=== PATIENT | female | born 1980 | race Caucasian/White ===

== ENCOUNTER 2017-01-24 12:59 | Emergency (ER) | payer OTHER ==
[~2017-01-24] VITALS: Ht 152.4 cm; Wt 44.0 kg
[2017-01-24] MEDS ORDERED: NEURONTIN600 MG PO (13:32)
[2017-01-24] MEDS ORDERED: KEPPRA 500 MG500 M1 PO (13:33)
[2017-01-24] MEDS ORDERED: DESYREL300 MG PO (13:33)
[2017-01-24] MEDS ORDERED: VITAMIN B-12100 MCG PO (13:33)
[2017-01-24] MEDS ORDERED: ESCITALOPRAM OX20 MG PO (13:34)
[2017-01-24] MEDS ORDERED: ZONEGRAN100 MG PO (13:34)
[2017-01-24 13:42] LABS: ABSOLUTE NEUTROPHILS 3.4 thou/uL (1.4-8.2); BASOPHILS 0.5 % (0.0-2.0); HEMATOCRIT 33.3 % (37.0-47.0); LYMPHOCYTES 30.4 % (24.0-44.0); MCH 27.7 pg (26.0-34.0); MCV 83.8 fL (80.0-100.0); MONOCYTES 7.6 % (1.0-8.0); PLATELET COUNT 195 thou/uL (150-400); POLYS 60.5 % (36.0-66.0); RBC 3.97 mil/uL (4.20-5.00); RDW 15.9 % (10.5-14.5); WBC 5.6 thou/uL (4.0-11.0)
[2017-01-24 13:43] LABS: MANUAL DIFF NO
[2017-01-24 13:48] LABS: CALCIUM 8.9 mg/dL (8.5-10.1); CREATININE 1.2 mg/dL (0.6-1.0); POTASSIUM 3.3 mmol/L (3.5-5.1)
[2017-01-24 13:54] LABS: ALBUMIN 3.8 g/dL (3.4-5.0); TOTAL BILIRUBIN 0.4 mg/dL (<0.1-1.0); TOTAL PROTEIN 7.5 g/dL (6.4-8.2)
[2017-01-24] MEDS ORDERED: ONDANSETRON HCL4 M2 PO (15:59)
[2017-01-24] MEDS ORDERED: BUTALB-APAP-CA1 EACH PO (15:59)
[2017-01-24 16:14] VITALS: BP 129/76
== END 2017-01-24 16:14 | disposition home or self-care (01) ==
LOC: ER 12:59
PROVIDERS: Emergency Medicine
DX: R10.12 Left upper quadrant pain (principal); R11.2 Nausea with vomiting, unspecified; G40.909 Epilepsy, unspecified, not intractable, without status epilepticus; Z94.4 Liver transplant status; F17.210 Nicotine dependence, cigarettes, uncomplicated; F10.99 Alcohol use, unspecified with unspecified alcohol-induced disorder; F19.10 Other psychoactive substance abuse, uncomplicated

== ENCOUNTER 2017-07-16 07:52 | Emergency (ER) | payer OTHER ==
[~2017-07-16] VITALS: Ht 152.4 cm; Wt 54.4 kg
[~2017-07-16 07:52] MED LIST: BUTALB-APAP-CA1 EACH PO; CLARITIN-D 121 EAC1 PO; DESYREL300 MG PO; ESCITALOPRAM OX20 MG PO; KEPPRA 500 MG500 M1 PO; MOBIC7.5 MG PO; NASONEX17 GM NASAL; NEURONTIN600 MG PO; ONDANSETRON HCL4 M2 PO; VITAMIN B-12100 MCG PO; ZONEGRAN100 MG PO
[2017-07-16] MEDS ORDERED: BACTROBAN NASAL1 GM NASAL (08:05)
[2017-07-16] MEDS ORDERED: BUTALB-APAP-CA1 EACH PO (08:06)
[2017-07-16] MEDS ORDERED: PROAIR HFA8.5 GM INH (08:21)
== END 2017-07-16 08:51 | disposition home or self-care (01) ==
LOC: ER 07:52
DX: J06.9 Acute upper respiratory infection, unspecified (principal); J98.01 Acute bronchospasm; F17.210 Nicotine dependence, cigarettes, uncomplicated; Z88.1 Allergy status to other antibiotic agents; Z88.8 Allergy status to other drugs, medicaments and biological substances

== ENCOUNTER 2017-08-07 22:25 | Emergency (ER) | payer OTHER ==
[~2017-08-07] VITALS: Ht 152.4 cm; Wt 54.4 kg
[~2017-08-07 22:25] MED LIST changes: +BACTROBAN NASAL1 GM NASAL; +PROAIR HFA8.5 GM INH
[2017-08-07] MEDS ORDERED: OSELB75 PO (23:39)
== END 2017-08-08 00:58 | disposition home or self-care (01) ==
LOC: ER 22:25
DX: J09.X2 Influenza due to identified novel influenza A virus with other respiratory manifestations (principal); F17.210 Nicotine dependence, cigarettes, uncomplicated; Z88.1 Allergy status to other antibiotic agents

== ENCOUNTER 2017-10-07 12:55 | Emergency (ER) | payer OTHER ==
[~2017-10-07] VITALS: Ht 152.4 cm; Wt 61.2 kg
--- NOTE | ~2017-10-07 | EKG ---
[address] [employer] [place] [address] ELECTROCARDIOGRAM REPORT Name: BENJIE CANTU Room #: DEP Aroldo#: [id number] Admission: 10/07/17 Attend Phys: Discharge: 10/07/17 Date of : 78 Report #: [id number] THIS REPORT FOR: //name// [facility] ED Test Date: 2017-10-07 Test Time: 13:27:46 Pat Name: BENJIE CANTU Department: Room: Gender: F Blintze Roller: RACHELLNELLY : 1980 Requested By: Ariadne Atkins Order Number: [id number] MD: Chan Christine Measurements Intervals [place] Rate: 81 P: 17 ND: 132 QRS: 43 QRSD: 69 T: 35 QT: 392 QTc: 455 Interpretive Statements Sinus rhythm Normal tracing No previous ECG available for comparison Electronically Signed On 10-09-2017 16:27:08 CDT by Chan Christine [email or web address] <ELECTRONICALLY SIGNED> By: Chan Christine MD, [facility] 10/09/17 1627 1327 1327 Chan Christine MD, FACC /EPI
[~2017-10-07 12:55] MED LIST changes: +OSELB75 PO
[2017-10-07 13:34] LABS: BASOPHILS 0.6 % (0.0-2.0); EOSINOPHILS 0.8 % (0.0-3.0); HEMATOCRIT 37.7 % (37.0-47.0); HEMOGLOBIN 12.4 gm/dL (12.0-15.0); MCH 27.9 pg (26.0-34.0); MCV 84.4 fL (80.0-100.0); PLATELET COUNT 269 thou/uL (150-400); POLYS 59.6 % (36.0-66.0); RBC 4.47 mil/uL (4.20-5.00); RDW 16.7 % (10.5-14.5); WBC 6.7 thou/uL (4.0-11.0)
[2017-10-07 13:43] LABS: ANION GAP 10 mmol/L (7-16); BUN 27 mg/dL (7-18); CALCIUM 9.2 mg/dL (8.5-10.1); CHLORIDE 107 mmol/L (98-107); CO2 25 mmol/L (21-32); CREATININE 1.3 mg/dL (0.6-1.0); GLUCOSE 80 mg/dL (74-106); POTASSIUM 3.9 mmol/L (3.5-5.1); SODIUM 142 mmol/L (136-145)
[2017-10-07 13:52] LABS: TROPONIN-I < 0.04 ng/mL (<0.06)
[2017-10-07] MEDS ORDERED: BUTALB-APAP-CA1 EACH PO (13:58)
[2017-10-07] MEDS ORDERED: CLONIDINE0.1 PO (14:04)
[2017-10-07 14:20] VITALS: BP 167/99
== END 2017-10-07 14:15 | disposition home or self-care (01) ==
LOC: ER 12:55
PROVIDERS: Emergency Medicine
DX: G43.909 Migraine, unspecified, not intractable, without status migrainosus (principal); I10 Essential (primary) hypertension; F17.210 Nicotine dependence, cigarettes, uncomplicated; Z88.1 Allergy status to other antibiotic agents

== ENCOUNTER 2017-12-02 18:31 | Emergency (ER) | payer OTHER ==
[~2017-12-02] VITALS: Ht 152.4 cm; Wt 59.0 kg
[~2017-12-02 18:31] MED LIST changes: +CLONIDINE0.1 PO
[2017-12-02] MEDS ORDERED: BUTALB-APAP-CA1 EACH PO (21:37)
[2017-12-02 21:50] VITALS: BP 146/89
== END 2017-12-02 21:50 | disposition home or self-care (01) ==
LOC: ER 18:31
DX: G43.909 Migraine, unspecified, not intractable, without status migrainosus (principal); F17.210 Nicotine dependence, cigarettes, uncomplicated; Z88.1 Allergy status to other antibiotic agents

== ENCOUNTER 2018-02-04 16:50 | Emergency (ER) | payer OTHER ==
[~2018-02-04] VITALS: Ht 152.4 cm; Wt 55.3 kg
[2018-02-04 17:35] VITALS: BP 137/84
[2018-02-04 18:57] LABS: HEMATOCRIT 35.9 % (37.0-47.0); HEMOGLOBIN 11.9 gm/dL (12.0-15.0); MCH 28.8 pg (26.0-34.0); MCHC 33.3 g/dL (28.0-37.0); MCV 86.8 fL (80.0-100.0); RBC 4.14 mil/uL (4.20-5.00); RDW 14.3 % (10.5-14.5); WBC 6.3 thou/uL (4.0-11.0)
[2018-02-04 19:09] LABS: CALCIUM 8.9 mg/dL (8.5-10.1); CREATININE 1.4 mg/dL (0.6-1.0); POTASSIUM 3.3 mmol/L (3.5-5.1)
== END 2018-02-04 20:32 | disposition home or self-care (01) ==
LOC: ER 16:50
PROVIDERS: Emergency Medicine
DX: R51 Headache (principal); F17.210 Nicotine dependence, cigarettes, uncomplicated; Z88.1 Allergy status to other antibiotic agents; Z88.8 Allergy status to other drugs, medicaments and biological substances; Z94.4 Liver transplant status

== ENCOUNTER 2018-05-19 11:23 | Emergency (ER) | payer OTHER ==
[~2018-05-19] VITALS: Ht 152.4 cm; Wt 59.0 kg
--- NOTE | ~2018-05-19 | EKG ---
[address] [address] ELECTROCARDIOGRAM REPORT Name: ALONDRABENJIE [id number] Admission: 05/19/18 Attend Phys: Discharge: Date of : 78 Report #: [id number] THIS REPORT FOR: //name// [facility] ED Test Date: 2018-05-19 Test Time: 12:01:02 Pat Name: BENJIE CANTU Department: Room: Gender: F Vp Global: ROSIE : 1980 Requested By: Ivet Cameron Order Number: [id number] MD: Drew Pierson Measurements Intervals [place] Rate: 61 P: 18 DE: 140 QRS: 39 QRSD: 88 T: 31 QT: 441 QTc: 445 Interpretive Statements Sinus rhythm Compared to ECG 10/07/2017 13:27:46 No significant changes Electronically Signed On 05-19-2018 13:24:42 NEWSPAPER COPY EDITOR by Drew Pierson [email or web address] <ELECTRONICALLY SIGNED> By: Drew Pierson MD 05/19/18 1324 1201 1201 Drew Pierson MD /CHUY
[2018-05-19 11:52] LABS: URINE BILIRUBIN NEGATIVE (Negative); URINE BLOOD NEGATIVE (Negative); URINE COLOR YELLOW; URINE GLUCOSE-RANDOM* NEGATIVE (Negative); URINE KETONES NEGATIVE (Negative); URINE LEUKOCYTES-REFLEX NEGATIVE (Negative); URINE NITRITE-REFLEX NEGATIVE (Negative); URINE PROTEIN (DIPSTICK) NEGATIVE (Negative); URINE SPECIFIC GRAVITY <= 1.005 (1.005-1.035); URINE UROBILINOGEN 0.2 E.U./dl (0.2-1.0)
[2018-05-19 11:53] LABS: URINE CLARITY CLOUDY
[2018-05-19 12:24] LABS: ABSOLUTE NEUTROPHILS 4.4 thou/uL (1.4-8.2); BASOPHILS 0.4 % (0.0-2.0); HEMATOCRIT 37.9 % (37.0-47.0); HEMOGLOBIN 13.1 gm/dL (12.0-15.0); LYMPHOCYTES 35.4 % (24.0-44.0); MCH 29.8 pg (26.0-34.0); MCHC 34.5 g/dL (28.0-37.0); MCV 86.5 fL (80.0-100.0); MONOCYTES 8.1 % (1.0-8.0); PLATELET COUNT 228 thou/uL (150-400); POLYS 55.1 % (36.0-66.0); RBC 4.38 mil/uL (4.20-5.00); RDW 14.6 % (10.5-14.5)
[2018-05-19 12:41] LABS: CALCIUM 9.7 mg/dL (8.5-10.1); CREATININE 1.8 mg/dL (0.6-1.0); POTASSIUM 4.4 mmol/L (3.5-5.1)
[2018-05-19] MEDS ORDERED: NORFLEX100 MG PO (13:11)
[2018-05-19] MEDS ORDERED: NAPROSYN500 MG PO (13:11)
[2018-05-19] MEDS ORDERED: SANDIMMUNE25 MG PO (13:35)
[2018-05-19 13:41] VITALS: BP 155/104
== END 2018-05-19 13:41 | disposition home or self-care (01) ==
LOC: ER 11:23
PROVIDERS: Student in an Organized Health Care Education/Training Program
DX: S16.1XXA Strain of muscle, fascia and tendon at neck level, initial encounter (principal); G40.909 Epilepsy, unspecified, not intractable, without status epilepticus; F17.210 Nicotine dependence, cigarettes, uncomplicated; Z88.1 Allergy status to other antibiotic agents; Z88.8 Allergy status to other drugs, medicaments and biological substances; Z94.4 Liver transplant status; W18.39XA Other fall on same level, initial encounter; Y92.89 Other specified places as the place of occurrence of the external cause; Y93.89 Activity, other specified; Y99.8 Other external cause status

== ENCOUNTER 2019-04-20 11:01 | Emergency (ER) | payer OTHER ==
[~2019-04-20] VITALS: Ht 152.4 cm; Wt 48.1 kg
[~2019-04-20 11:01] MED LIST changes: +NAPROSYN500 MG PO; +NORFLEX100 MG PO; +SANDIMMUNE25 MG PO
[2019-04-20 11:04] VITALS: BP 149/99
[2019-04-20] MEDS ORDERED: AMOXICILLIN 50500 MG PO (11:56)
[2019-04-20] MEDS ORDERED: IBUPROFEN 800800 M1 PO (11:56)
== END 2019-04-20 12:02 | disposition home or self-care (01) ==
LOC: ER 11:01
DX: K08.89 Other specified disorders of teeth and supporting structures (principal); F17.210 Nicotine dependence, cigarettes, uncomplicated; Z88.1 Allergy status to other antibiotic agents; Z88.8 Allergy status to other drugs, medicaments and biological substances

== ENCOUNTER 2019-08-02 15:43 | Emergency (ER) | payer OTHER ==
[~2019-08-02] VITALS: Ht 152.4 cm; Wt 48.1 kg
[~2019-08-02 15:43] MED LIST changes: +AMOXICILLIN 50500 MG PO; +IBUPROFEN 800800 M1 PO
[2019-08-02] MEDS ORDERED: GABAPENTIN600 M1 PO (16:53)
[2019-08-02] MEDS ORDERED: ZONEGRAN100 MG PO (16:53)
[2019-08-02] MEDS ORDERED: SERTRALINE HCL100 MG PO (16:54)
[2019-08-02] MEDS ORDERED: LATUDA40 MG PO (16:54)
[2019-08-02] MEDS ORDERED: FOLIC ACID1 MG PO (16:55)
[2019-08-02] MEDS ORDERED: LOPRESSOR50 MG PO (16:55)
[2019-08-02 17:29] LABS: ABSOLUTE NEUTROPHILS 5.5 thou/uL (1.4-8.2); BASOPHILS 0.3 % (0.0-2.0); EOSINOPHILS 1.7 % (0.0-3.0); HEMATOCRIT 38.5 % (37.0-47.0); HEMOGLOBIN 13.1 gm/dL (12.0-15.0); LYMPHOCYTES 28.1 % (24.0-44.0); MCH 31.5 pg (26.0-34.0); MCHC 34.1 g/dL (28.0-37.0); MCV 92.3 fL (80.0-100.0); MONOCYTES 7.4 % (1.0-8.0); PLATELET COUNT 170 thou/uL (150-400); POLYS 62.5 % (36.0-66.0); RBC 4.17 mil/uL (4.20-5.00); RDW 12.2 % (10.5-14.5); WBC 8.8 thou/uL (4.0-11.0)
[2019-08-02 17:33] LABS: CALCIUM 9.2 mg/dL (8.5-10.1); POTASSIUM 3.2 mmol/L (3.5-5.1)
[2019-08-02 17:40] LABS: TOTAL BILIRUBIN 0.4 mg/dL (<0.1-1.0); TOTAL PROTEIN 7.8 g/dL (6.4-8.2)
[2019-08-02 17:42] LABS: URINE BILIRUBIN NEGATIVE (Negative); URINE BLOOD NEGATIVE (Negative); URINE CLARITY CLEAR; URINE COLOR YELLOW; URINE GLUCOSE-RANDOM* NEGATIVE (Negative); URINE KETONES NEGATIVE (Negative); URINE LEUKOCYTES-REFLEX NEGATIVE (Negative); URINE NITRITE-REFLEX NEGATIVE (Negative); URINE PROTEIN (DIPSTICK) NEGATIVE (Negative); URINE UROBILINOGEN 0.2 E.U./dl (0.2-1.0)
[2019-08-02 19:40] VITALS: BP 166/105
== END 2019-08-02 20:40 | disposition home or self-care (01) ==
LOC: ER 15:43
PROVIDERS: Physician Assistant
DX: R19.7 Diarrhea, unspecified (principal); E87.6 Hypokalemia; K83.8 Other specified diseases of biliary tract; F17.210 Nicotine dependence, cigarettes, uncomplicated; Z94.4 Liver transplant status; Z88.1 Allergy status to other antibiotic agents; Z88.8 Allergy status to other drugs, medicaments and biological substances

== ENCOUNTER 2019-08-03 15:52 | Emergency (ER) | payer OTHER ==
[~2019-08-03] VITALS: Ht 152.4 cm; Wt 48.5 kg
[~2019-08-03 15:52] MED LIST changes: +FOLIC ACID1 MG PO; +GABAPENTIN600 M1 PO; +LATUDA40 MG PO; +LOPRESSOR50 MG PO; +SERTRALINE HCL100 MG PO
[2019-08-03 18:07] LABS: ABSOLUTE NEUTROPHILS 5.7 thou/uL (1.4-8.2); BASOPHILS 0.5 % (0.0-2.0); EOSINOPHILS 1.1 % (0.0-3.0); HEMATOCRIT 41.7 % (37.0-47.0); HEMOGLOBIN 13.9 gm/dL (12.0-15.0); LYMPHOCYTES 27.7 % (24.0-44.0); MCH 31.2 pg (26.0-34.0); MCHC 33.4 g/dL (28.0-37.0); MCV 93.4 fL (80.0-100.0); PLATELET COUNT 169 thou/uL (150-400); POLYS 64.7 % (36.0-66.0); RBC 4.47 mil/uL (4.20-5.00); RDW 12.3 % (10.5-14.5); WBC 8.9 thou/uL (4.0-11.0)
[2019-08-03 18:23] LABS: CALCIUM 9.3 mg/dL (8.5-10.1); CREATININE 1.1 mg/dL (0.6-1.0); POTASSIUM 3.5 mmol/L (3.5-5.1)
[2019-08-03 22:04] VITALS: BP 133/96
== END 2019-08-03 22:07 | disposition short-term general hospital (02) ==
LOC: ER 15:52
PROVIDERS: Physician Assistant
DX: D89.9 Disorder involving the immune mechanism, unspecified (principal); L27.0 Generalized skin eruption due to drugs and medicaments taken internally; T36.8X5A Adverse effect of other systemic antibiotics, initial encounter; F17.210 Nicotine dependence, cigarettes, uncomplicated; Z94.4 Liver transplant status; Z88.1 Allergy status to other antibiotic agents; Z88.8 Allergy status to other drugs, medicaments and biological substances; Y92.89 Other specified places as the place of occurrence of the external cause

== ENCOUNTER 2019-08-24 04:12 | Inpatient (IN) | payer OTHER ==
[~2019-08-24] VITALS: Ht 154.9 cm; Wt 49.9 kg
[2019-08-24 04:13] VITALS: BP 187/110
[2019-08-24 04:45] LABS: BASOPHILS 0.6 % (0.0-2.0); EOSINOPHILS 1.5 % (0.0-3.0); HEMATOCRIT 40.7 % (37.0-47.0); HEMOGLOBIN 13.6 gm/dL (12.0-15.0); LYMPHOCYTES 18.2 % (24.0-44.0); MCH 31.5 pg (26.0-34.0); MCHC 33.4 g/dL (28.0-37.0); MCV 94.4 fL (80.0-100.0); PLATELET COUNT 237 thou/uL (150-400); POLYS 71.7 % (36.0-66.0); RBC 4.32 mil/uL (4.20-5.00); RDW 12.7 % (10.5-14.5); WBC 8.4 thou/uL (4.0-11.0)
[2019-08-24 04:51] LABS: ANION GAP 11 mmol/L (7-16); BUN 14 mg/dL (7-18); CALCIUM 9.4 mg/dL (8.5-10.1); CHLORIDE 102 mmol/L (98-107); CO2 27 mmol/L (21-32); CREATININE 1.1 mg/dL (0.6-1.0); GLUCOSE 102 mg/dL (74-106); POTASSIUM 3.5 mmol/L (3.5-5.1); SODIUM 140 mmol/L (136-145)
[2019-08-24 04:55] LABS: SALICYLATE 4.9 mg/dL (2.8-20.0)
--- NOTE | 2019-08-24 06:05 | NUR ---
PT'S MEDICATION WERE GIVEN TO HER BOYFRIEND AND HE TOOK THEM HOME. PT CLOTHES WERE LOCKED UP IN THE SAFE.
--- NOTE | 2019-08-24 08:49 | NUR ---
THE CHARGE NURSE STATED THAT RESEARCH HAS BEEN CONTACTED AND IS ARRANGING FOR AN DOLLYMAN TO COME ASSESS. PHYSICIAN WAS NOTIFIED AT THIS TIME.
[2019-08-24 10:18] LABS: URINE BILIRUBIN NEGATIVE (Negative); URINE BLOOD NEGATIVE (Negative); URINE CLARITY CLEAR; URINE COLOR YELLOW; URINE GLUCOSE-RANDOM* NEGATIVE (Negative); URINE KETONES NEGATIVE (Negative); URINE LEUKOCYTES-REFLEX NEGATIVE (Negative); URINE NITRITE-REFLEX NEGATIVE (Negative); URINE PROTEIN (DIPSTICK) NEGATIVE (Negative); URINE UROBILINOGEN 0.2 E.U./dl (0.2-1.0)
[2019-08-24 10:37] LABS: AMP/METHAMP Negative (Negative); BARBITURATES Negative (Negative); BENZODIAZEPINES Negative (Negative); COCAINE Negative (Negative); METHADONE Negative (Negative); OPIATES Negative (Negative); PCP Negative (Negative)
[2019-08-24 13:13] VITALS: BP 134/88
[2019-08-24 14:20] VITALS: BP 129/33
--- NOTE | 2019-08-24 14:23 | NUR ---
CONTACTED 4W TO LET THEM KNOW THAT THE HANDOFF TOOL WAS SENT. PER THE CHARGE NURSE, THE PT WILL NOT BE SENT UPSTAIRS UNTIL THE SITTER ASSIGNED TO THE PT RETURNS FROM HER LUNCH BREAK.
[2019-08-24 15:00] VITALS: BP 122/33
[2019-08-24 15:17] VITALS: BP 134/92
--- NOTE | 2019-08-24 17:43 | NUR ---
ASSUMED CARE OF PT APPROX 1625. PT ALERT AND ORIENTED X2, VSS, DENIES PAIN. PATIENT HAS TROUBLE ARTICULATING THOUGHTS. PATIENT ABLE TO ANSWER SOME QUESTIONS YES OR NO. PATIENT HAS DENIED SI/HI AT THIS TIME. PATIENT RESTING IN BED, COOPERATIVE. NO SIGNS OF DISTRESS. WILL CONTINUE TO MONITOR.
[2019-08-24 19:34] VITALS: BP 134/94
[2019-08-25 05:17] VITALS: BP 145/95
[2019-08-25 05:59] LABS: HEMATOCRIT 35.8 % (37.0-47.0); HEMOGLOBIN 12.2 gm/dL (12.0-15.0); MCH 32.1 pg (26.0-34.0); MCHC 34.1 g/dL (28.0-37.0); MCV 94.3 fL (80.0-100.0); RBC 3.8 mil/uL (4.20-5.00); WBC 7.3 thou/uL (4.0-11.0)
[2019-08-25 06:14] LABS: ALBUMIN 3.4 g/dL (3.4-5.0); CREATININE 0.9 mg/dL (0.6-1.0); POTASSIUM 3.3 mmol/L (3.5-5.1); TOTAL BILIRUBIN 0.3 mg/dL (<0.1-1.0); TOTAL PROTEIN 6.8 g/dL (6.4-8.2)
--- NOTE | 2019-08-25 12:31 | NUR ---
ASSUMED PT CARE AT 7AM.ASSESSMENT COMPLETED.VSS.PT IN BED FOR ALL MEALS.GOOD APPETITE NOTED.SITTER AT BS AT ALLTIMES TILL [address]'D [address] EVANS.PT SHOWS NO S/S OF S.I. LATER THIS AFTERNOON,DR LAND ROUNDED ON PT AND OKAY SITTER TO BE DC'D AND ALSO DISCUSSED WITH PT BOYFRIEND.PT IN BED DOING EEG AT PRESENT.WILL CONTINUE TO MONITOR. .
[2019-08-25 15:00] VITALS: BP 144/89
[2019-08-25 19:24] VITALS: BP 167/112
--- NOTE | 2019-08-25 21:35 | NUR ---
BELONGINGS SECURED IN LOCK UP RETURNED TO PT IN 460
--- NOTE | 2019-08-25 23:30 | NUR ---
PT EXPRESSED THAT SHE WANTED TO DISCHARGED AMA. NICOLAS PAGAN CHARTER BUS DRIVER CONTACTED SHE STATED SHE WASN'T FAMILIAR WITH PT AND TO CONTACT WITH NEUROLOGY AND BOTH WERE CONTACTED AND WHERE OPEN TO HER DISCHARGING. IV REMOVED FROM RIGHT HAND NO S/S/ OF INFECTION OR INFILTRATION NOTED. AMA FORMED SIGNED AND PT AMBULATED OFF UNIT WITH BOYFRIEND.
[2019-08-27 14:07] LABS: LEVETIRACETAM (KEPPRA) 4.6 ug/mL (10.0-40.0)
== END 2019-08-25 21:50 | disposition left against medical advice (07) | DRG 86 ==
LOC: ER 04:12 → EROBS 12:18 → 4W 15:19
PROVIDERS: Emergency Medicine Emergency Medical Services; ADMIT Hospitalist
DX: S06.9X0A Unspecified intracranial injury without loss of consciousness, initial encounter (principal); R45.851 Suicidal ideations; G93.40 Encephalopathy, unspecified; Z94.4 Liver transplant status; G40.909 Epilepsy, unspecified, not intractable, without status epilepticus; I10 Essential (primary) hypertension; F17.210 Nicotine dependence, cigarettes, uncomplicated; R41.0 Disorientation, unspecified; Z88.3 Allergy status to other anti-infective agents; Z88.8 Allergy status to other drugs, medicaments and biological substances; Z91.14 Patient's other noncompliance with medication regimen; Z79.899 Other long term (current) drug therapy; X58.XXXA Exposure to other specified factors, initial encounter; Y93.89 Activity, other specified; Y92.89 Other specified places as the place of occurrence of the external cause; Y99.8 Other external cause status
CPT/HCPCS: 10040

== ENCOUNTER 2019-12-15 19:45 | Inpatient (IN) | payer OTHER ==
[~2019-12-15] VITALS: Ht 157.5 cm; Wt 68.0 kg
[2019-12-15 19:47] VITALS: BP 182/115
[2019-12-15 20:15] LABS: URINE BILIRUBIN NEGATIVE (Negative); URINE BLOOD 1+ (Negative); URINE CLARITY CLEAR; URINE COLOR YELLOW; URINE GLUCOSE-RANDOM* NEGATIVE (Negative); URINE KETONES NEGATIVE (Negative); URINE LEUKOCYTES-REFLEX NEGATIVE (Negative); URINE NITRITE-REFLEX NEGATIVE (Negative); URINE PROTEIN (DIPSTICK) NEGATIVE (Negative); URINE SPECIFIC GRAVITY 1.015 (1.005-1.035); URINE UROBILINOGEN 0.2 E.U./dl (0.2-1.0)
[2019-12-15 20:18] LABS: ABSOLUTE NEUTROPHILS 6.1 thou/uL (1.4-8.2); BASOPHILS 0.5 % (0.0-2.0); EOSINOPHILS 1.1 % (0.0-3.0); HEMATOCRIT 37.9 % (37.0-47.0); HEMOGLOBIN 12.9 gm/dL (12.0-15.0); LYMPHOCYTES 20.4 % (24.0-44.0); MCH 32.5 pg (26.0-34.0); MCHC 34.2 g/dL (28.0-37.0); MCV 95.1 fL (80.0-100.0); MONOCYTES 8.6 % (1.0-8.0); PLATELET COUNT 216 thou/uL (150-400); POLYS 69.4 % (36.0-66.0); RBC 3.98 mil/uL (4.20-5.00); RDW 12.6 % (10.5-14.5); WBC 8.9 thou/uL (4.0-11.0)
[2019-12-15 20:22] LABS: CALCIUM 9.2 mg/dL (8.5-10.1); POTASSIUM 4.3 mmol/L (3.5-5.1)
[2019-12-15 20:24] LABS: AMP/METHAMP Negative (Negative); BARBITURATES Negative (Negative); BENZODIAZEPINES Negative (Negative); COCAINE Negative (Negative); METHADONE Negative (Negative); OPIATES Negative (Negative); PCP Negative (Negative)
[2019-12-15 20:27] LABS: BACTERIA-REFLEX None Seen /HPF (None Seen); CASTS None Seen /LPF (None Seen); CRYSTALS None Seen /LPF (None Seen); MUCUS None Seen strn/LPF (None Seen); SQUAMOUS None Seen /LPF (0-3); TRANSITIONAL EPITHEL CELL 0-3 Few /LPF (None Seen); URINE RBC 0-2 Rare /HPF (0-2); URINE WBC-REFLEX None Seen /HPF (0-5)
[2019-12-15 20:29] LABS: ALBUMIN 4.1 g/dL (3.4-5.0); TOTAL BILIRUBIN 0.4 mg/dL (0.2-1.0)
[2019-12-15 22:50] VITALS: BP 170/102
[2019-12-15 22:55] VITALS: BP 170/102
[2019-12-15 23:30] VITALS: BP 162/114
--- NOTE | 2019-12-16 02:47 | NUR ---
PT WAS ADMITTED TO THE UNIT FROM THE ER AT APPROX 2320 IN A STABLE CONDITION.PT WAS ALERT TO SELF AND CONFUSED.PT STILL DIFFICULT TO UNDERSTAND WHEN SHE SPEAKS.IVF INFUSING ORDERED.ADMISSION HX AND ASSESMENT NOT COMPLETED DUE TO IT PROBLEM.IT AND FIRE RANGER NOTIFIED.THIS NURSE TRIED TO CALL PT'S FAMILY FOR MORE INFO BUT IT WENT TO ,LEFT A MESSAGE.PT SLEEPING ON HER BED AT THIS TIME.FALL AND SZ PRECAUTIONS IN PLACE.CALL LIGHT WITHIN REACH.
[2019-12-16 04:35] VITALS: BP 123/84
[2019-12-16 08:00] VITALS: BP 134/84
[2019-12-16 12:07] VITALS: BP 134/84
--- NOTE | 2019-12-16 21:00 | NUR ---
ASSUMED PT CARE AT 0700. PT A XO X SELF, CONFUSED. ADMITTED FOR SEIZURE. H/O SEIZURE. SEIZURE PRECAUTION IN PLACE AND MEDICATIONS GIVEN. IV LEFT WRIST WITH NS RUNNING AT 100ML/HR. ON ROOM AIR. NO C/O PAIN. PATIENT VOMITED ONE TIME AND ZOFRAN WAS GIVEN. NO SKIN BREAKDOWN. BY ABOUT 0800, PT WAS AGITATED SAYING " I NEED TO GET OUT OF HERE". NURSE AND THE CHARGE NURSE TRIED TO CALM DOWN PATIENT. PATIENT DIDNT KNOW WHERE SHE WAS AND HOW SHE WAS BROUGHT TO THE HOSPITAL. DOCTOR NOTIFIED AND DOCTOR SAID HE WILL COME AND SEE THE PT AT 1000 AND IS SHE LEAVES BEFORE THAT, SHE NEED TO SIGN AMA. PT WAS CALMED DOWN FOR A WHILE AND BY AROUND 1000, SHE WAS AGITATED SAYING SHE WILL SIGN AMA AND WILL LEAVE. MINING MACHINERY ASSEMBLER AND DOCTOR NOTIFIED. DOCTOR ARRIVED IN 5 MINS AND TALKED TO THE PT. PT SAID, SHE WANT TO LEAVE AND DISCHARGE ORDER WAS ORDERED BY THE DOCTOR. PATIENT'S BOY FRIEND CAME AND PICKED HER.
== END 2019-12-16 12:35 | disposition left against medical advice (07) | DRG 101 ==
LOC: ER 19:45 → EROBS 22:30 → 4S 22:57
PROVIDERS: Emergency Medicine; ADMIT Internal Medicine; ATTEND Internal Medicine
DX: G40.909 Epilepsy, unspecified, not intractable, without status epilepticus (principal); Z94.4 Liver transplant status; G93.40 Encephalopathy, unspecified; F32.9 Major depressive disorder, single episode, unspecified; I10 Essential (primary) hypertension; F17.210 Nicotine dependence, cigarettes, uncomplicated; Z79.899 Other long term (current) drug therapy; Z88.1 Allergy status to other antibiotic agents; Z88.8 Allergy status to other drugs, medicaments and biological substances; Z85.841 Personal history of malignant neoplasm of brain; Z87.820 Personal history of traumatic brain injury
CPT/HCPCS: 10100

== ENCOUNTER 2020-01-04 21:48 | Emergency (ER) | payer OTHER ==
[~2020-01-04] VITALS: Ht 154.9 cm; Wt 49.0 kg
[2020-01-04 22:07] VITALS: BP 175/103
== END 2020-01-04 23:21 | disposition left against medical advice (07) ==
LOC: ER 21:48
DX: R07.89 Other chest pain (principal); Z53.21 Procedure and treatment not carried out due to patient leaving prior to being seen by health care provider

== ENCOUNTER 2020-01-10 19:02 | Emergency (ER) | payer OTHER ==
[~2020-01-10] VITALS: Ht 152.4 cm; Wt 47.6 kg
[2020-01-10 20:09] LABS: ABSOLUTE NEUTROPHILS 3.8 thou/uL (1.4-8.2); BASOPHILS 0.6 % (0.0-2.0); EOSINOPHILS 1.5 % (0.0-3.0); HEMATOCRIT 36.7 % (37.0-47.0); HEMOGLOBIN 12.8 gm/dL (12.0-15.0); LYMPHOCYTES 33.5 % (24.0-44.0); MCH 32.8 pg (26.0-34.0); MCHC 34.9 g/dL (28.0-37.0); MONOCYTES 8.5 % (1.0-8.0); PLATELET COUNT 201 thou/uL (150-400); POLYS 55.9 % (36.0-66.0); RDW 12.2 % (10.5-14.5); WBC 6.8 thou/uL (4.0-11.0)
[2020-01-10 20:19] LABS: CALCIUM 7.7 mg/dL (8.5-10.1); CREATININE 1.1 mg/dL (0.6-1.0); TOTAL BILIRUBIN 0.6 mg/dL (0.2-1.0); TOTAL PROTEIN 7.6 g/dL (6.4-8.2)
[2020-01-10 20:24] LABS: POTASSIUM 2.8 mmol/L (3.5-5.1)
[2020-01-10 21:53] LABS: URINE BILIRUBIN NEGATIVE (Negative); URINE BLOOD NEGATIVE (Negative); URINE CLARITY CLEAR; URINE COLOR YELLOW; URINE GLUCOSE-RANDOM* NEGATIVE (Negative); URINE KETONES NEGATIVE (Negative); URINE LEUKOCYTES-REFLEX NEGATIVE (Negative); URINE NITRITE-REFLEX NEGATIVE (Negative); URINE PROTEIN (DIPSTICK) NEGATIVE (Negative); URINE SPECIFIC GRAVITY <= 1.005 (1.005-1.035); URINE UROBILINOGEN 0.2 E.U./dl (0.2-1.0)
[2020-01-10] MEDS ORDERED: ULTRAM50 MG PO (23:09)
[2020-01-10] MEDS ORDERED: POTASSIUM20 PO (23:09)
[2020-01-10 23:22] VITALS: BP 154/95
== END 2020-01-10 23:44 | disposition home or self-care (01) ==
LOC: ER 19:02
PROVIDERS: Emergency Medicine
DX: K85.90 Acute pancreatitis without necrosis or infection, unspecified (principal); R74.8 Abnormal levels of other serum enzymes; I10 Essential (primary) hypertension; F31.9 Bipolar disorder, unspecified; F17.210 Nicotine dependence, cigarettes, uncomplicated; Z94.4 Liver transplant status; Z88.8 Allergy status to other drugs, medicaments and biological substances; Z88.1 Allergy status to other antibiotic agents; Z79.899 Other long term (current) drug therapy

== ENCOUNTER 2020-01-17 21:40 | Emergency (ER) | payer OTHER ==
[~2020-01-17] VITALS: Ht 152.4 cm; Wt 48.1 kg
[~2020-01-17 21:40] MED LIST changes: +POTASSIUM20 PO; +ULTRAM50 MG PO
[2020-01-17 22:57] LABS: ABSOLUTE NEUTROPHILS 4.7 thou/uL (1.4-8.2); BASOPHILS 0.4 % (0.0-2.0); HEMATOCRIT 35.5 % (37.0-47.0); HEMOGLOBIN 12.3 gm/dL (12.0-15.0); LYMPHOCYTES 29.1 % (24.0-44.0); MCH 32.9 pg (26.0-34.0); MCHC 34.5 g/dL (28.0-37.0); MCV 95.2 fL (80.0-100.0); MONOCYTES 7.3 % (1.0-8.0); PLATELET COUNT 170 thou/uL (150-400); POLYS 62.2 % (36.0-66.0); RBC 3.73 mil/uL (4.20-5.00); RDW 12.2 % (10.5-14.5); WBC 7.5 thou/uL (4.0-11.0)
[2020-01-17 23:06] LABS: ANION GAP 14 mmol/L (7-16); BUN 21 mg/dL (7-18); CHLORIDE 107 mmol/L (98-107); CO2 19 mmol/L (21-32); CREATININE 1.2 mg/dL (0.6-1.0); GLUCOSE 92 mg/dL (74-106); POTASSIUM 4.5 mmol/L (3.5-5.1); SODIUM 140 mmol/L (136-145)
[2020-01-17 23:11] LABS: ALBUMIN 3.7 g/dL (3.4-5.0); SGOT 30 U/L (15-37); SGPT 22 U/L (30-65); TOTAL BILIRUBIN 0.5 mg/dL (0.2-1.0); TOTAL PROTEIN 7.3 g/dL (6.4-8.2); TROPONIN-I <0.06 ng/mL (<0.06)
[2020-01-17 23:31] VITALS: BP 156/105
--- NOTE | 2020-01-18 09:16 | EKG ---
[facility] [place] [address] ELECTROCARDIOGRAM REPORT Name: BENJIE CANTU Room #: DEP [facility]#: [id number] Admission: 01/17/20 Attend Phys: Discharge: 01/17/20 Date of : 78 Report #: [id number] THIS REPORT FOR: cc: SEMAJ - No family physician/PCP FAM - No family physician/PCP Chan Christine MD [facility] THIS REPORT FOR: //name// [facility] ED Test Date: 2020-01-17 Test Time: 22:22:21 Pat Name: BENJIE CANTU Department: Room: Gender: F Dialysis Clinical Manager: [place] [id number] : 1980 Requested By: Stalin Newby Order Number: [id number] MD: Chan Christine Measurements Intervals [place] Rate: 66 P: 78 WV: 146 QRS: 72 QRSD: 81 T: 49 QT: 425 QTc: 446 Interpretive Statements Sinus rhythm Normal tracing Compared to ECG 05/19/2018 12:01:02 No significant changes Electronically Signed On 01-18-2020 9:16:10 CDT by Chan Christine [email or web address] <ELECTRONICALLY SIGNED> By: Chan Christine MD, FACC 01/18/20915 21 21 Chan Christine MD, [facility] /EPI
== END 2020-01-17 23:31 | disposition home or self-care (01) ==
LOC: ER 21:40
PROVIDERS: Emergency Medicine
DX: M79.601 Pain in right arm (principal); I10 Essential (primary) hypertension; F31.9 Bipolar disorder, unspecified; F17.210 Nicotine dependence, cigarettes, uncomplicated; Z94.4 Liver transplant status; Z79.899 Other long term (current) drug therapy; Z88.1 Allergy status to other antibiotic agents; Z88.8 Allergy status to other drugs, medicaments and biological substances

== ENCOUNTER 2020-02-05 16:07 | Emergency (ER) | payer OTHER ==
[~2020-02-05] VITALS: Ht 152.4 cm; Wt 47.6 kg
[2020-02-05 17:58] LABS: URINE BILIRUBIN NEGATIVE (Negative); URINE BLOOD TRACE (Negative); URINE CLARITY CLEAR; URINE COLOR YELLOW; URINE GLUCOSE-RANDOM* NEGATIVE (Negative); URINE KETONES NEGATIVE (Negative); URINE LEUKOCYTES-REFLEX NEGATIVE (Negative); URINE NITRITE-REFLEX NEGATIVE (Negative); URINE PROTEIN (DIPSTICK) NEGATIVE (Negative); URINE SPECIFIC GRAVITY <= 1.005 (1.005-1.035); URINE UROBILINOGEN 0.2 E.U./dl (0.2-1.0)
[2020-02-05 18:25] LABS: ABSOLUTE NEUTROPHILS 4.6 thou/uL (1.4-8.2); BASOPHILS 0.4 % (0.0-2.0); HEMATOCRIT 36.7 % (37.0-47.0); HEMOGLOBIN 12.6 gm/dL (12.0-15.0); LYMPHOCYTES 25.1 % (24.0-44.0); MCH 32.5 pg (26.0-34.0); MCHC 34.3 g/dL (28.0-37.0); MCV 94.8 fL (80.0-100.0); MONOCYTES 7.7 % (1.0-8.0); PLATELET COUNT 218 thou/uL (150-400); POLYS 65.8 % (36.0-66.0); RBC 3.87 mil/uL (4.20-5.00); RDW 11.9 % (10.5-14.5); WBC 6.9 thou/uL (4.0-11.0)
[2020-02-05 18:40] LABS: CALCIUM 8.4 mg/dL (8.5-10.1); CREATININE 0.9 mg/dL (0.6-1.0); POTASSIUM 3.4 mmol/L (3.5-5.1)
[2020-02-05 18:45] LABS: ALBUMIN 3.9 g/dL (3.4-5.0); TOTAL BILIRUBIN 0.4 mg/dL (0.2-1.0); TOTAL PROTEIN 7.8 g/dL (6.4-8.2)
[2020-02-05] MEDS ORDERED: NORCO 5-325 TA1 EAC2 PO (20:21)
[2020-02-05 22:34] VITALS: BP 155/99
== END 2020-02-05 22:37 | disposition home or self-care (01) ==
LOC: ER 16:07
PROVIDERS: Physician Assistant
DX: K85.90 Acute pancreatitis without necrosis or infection, unspecified (principal); R19.7 Diarrhea, unspecified; F31.9 Bipolar disorder, unspecified; I10 Essential (primary) hypertension; F17.210 Nicotine dependence, cigarettes, uncomplicated; Z94.4 Liver transplant status; Z94.83 Pancreas transplant status; Z79.899 Other long term (current) drug therapy; Z88.1 Allergy status to other antibiotic agents; Z88.8 Allergy status to other drugs, medicaments and biological substances; Z90.49 Acquired absence of other specified parts of digestive tract

== ENCOUNTER 2020-04-01 13:15 | Emergency (ER) | payer OTHER ==
[~2020-04-01] VITALS: Ht 152.4 cm; Wt 47.6 kg
[~2020-04-01 13:15] MED LIST changes: +NORCO 5-325 TA1 EAC2 PO
[2020-04-01 15:21] LABS: ABSOLUTE NEUTROPHILS 4.1 thou/uL (1.4-8.2); BASOPHILS 0.6 % (0.0-2.0); EOSINOPHILS 0.5 % (0.0-3.0); HEMATOCRIT 34.5 % (37.0-47.0); HEMOGLOBIN 11.8 gm/dL (12.0-15.0); LYMPHOCYTES 28.5 % (24.0-44.0); MCHC 34.2 g/dL (28.0-37.0); MCV 93.6 fL (80.0-100.0); MONOCYTES 7.5 % (1.0-8.0); PLATELET COUNT 211 thou/uL (150-400); POLYS 62.9 % (36.0-66.0); RBC 3.69 mil/uL (4.20-5.00); WBC 6.5 thou/uL (4.0-11.0)
[2020-04-01 15:31] LABS: CALCIUM 8.9 mg/dL (8.5-10.1); CREATININE 1.1 mg/dL (0.6-1.0); POTASSIUM 3.2 mmol/L (3.5-5.1)
[2020-04-01 15:35] LABS: APTT 25.4 Seconds (24.5-32.8); PROTIME 10.2 Seconds (9.3-11.4)
[2020-04-01 15:38] LABS: ALBUMIN 3.9 g/dL (3.4-5.0); TOTAL BILIRUBIN 0.4 mg/dL (0.2-1.0); TOTAL PROTEIN 7.7 g/dL (6.4-8.2)
[2020-04-01 16:33] LABS: URINE BILIRUBIN NEGATIVE (Negative); URINE BLOOD TRACE (Negative); URINE CLARITY CLEAR; URINE COLOR YELLOW; URINE GLUCOSE-RANDOM* NEGATIVE (Negative); URINE KETONES NEGATIVE (Negative); URINE LEUKOCYTES-REFLEX NEGATIVE (Negative); URINE NITRITE-REFLEX NEGATIVE (Negative); URINE PROTEIN (DIPSTICK) NEGATIVE (Negative); URINE SPECIFIC GRAVITY 1.015 (1.005-1.035); URINE UROBILINOGEN 0.2 E.U./dl (0.2-1.0)
[2020-04-01] MEDS ORDERED: ZOFRAN ODT4 MG PO (17:13)
[2020-04-01 17:20] VITALS: BP 147/93
== END 2020-04-01 17:17 | disposition home or self-care (01) ==
LOC: ER 13:15
PROVIDERS: Emergency Medicine
DX: R10.13 Epigastric pain (principal); R11.2 Nausea with vomiting, unspecified; I10 Essential (primary) hypertension; F17.210 Nicotine dependence, cigarettes, uncomplicated; Z79.899 Other long term (current) drug therapy; Z88.1 Allergy status to other antibiotic agents; Z88.8 Allergy status to other drugs, medicaments and biological substances

== ENCOUNTER 2021-08-09 22:30 | Inpatient (IN) | payer OTHER ==
[~2021-08-09] VITALS: Ht 152.4 cm; Wt 49.9 kg
--- NOTE | ~2021-08-09 | HC ---
[facility] [place] [address] CONSULTATION Name: BENJIE CANTU Room #: 170-11 ADM IN M.R.#: [id number] Admission: 08/10/21 Attend Phys: Malorie Nicholson Discharge: Date of : 78 Report #: [id number] THIS REPORT FOR: cc: Ge Law,Ge Yoo,Clarence Trimble MD ~ DATE OF SERVICE: 08/10/2021 HISTORY OF PRESENT ILLNESS: This is a 41-year-old female patient who was evaluated in the Emergency Room. The patient's history is from the record. Examination is almost impossible because she kept shouting that she does not want to be bothered at the moment. I discussed with her the importance of this compliance and cooperating with me, but she kept shouting and she said she just wants to be left alone. The records indicate that she apparently has a traumatic brain injury and a history of seizure. She refused to tell me whether she has any neurologist there. It is clear that she has stopped taking her medications, Keppra for seizures. I do not even know who follows up her for seizure because she refused to give that history, but it is clear that she was taking some Keppra and she ran out of Keppra several days ago. Record indicates she has a history of a liver transplant, depression, and bipolar disorder. I do not know whether she was even taking immunosuppressive medications or not for the liver transplant. She was admitted with what looks like a breakthrough seizure. She was given Keppra. She will not tell me what dose of Keppra she is on. The record indicates she was put on 750 mg of b.i.d. Keppra and she is on that and she has not had any seizure. She did have a CT scan in the Emergency Room, which does indicate that she had craniotomy in the past. 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 REVIEW OF SYSTEMS: A 14-point review of system was carried out from the record. Presently, she is immunocompromised. She is a pretty agitated at the moment. She has a history of seizure disorder, but it is not clear how often she has the seizures. It is clear that she is noncompliant with the medications. PAST MEDICAL HISTORY: Positive for renal transplant. FAMILY HISTORY: She refused to give. SOCIAL HISTORY: I tried to find out about drinking alcohol or smoking. She refused to tell, but she apparently does smoke. PHYSICAL EXAMINATION: Her examination was limited. The only thing I can tell is that she moves all 4 extremities. She refused to cooperate with the rest of the examination. Blood pressure is 120/80. She does not appear to be in a respiratory difficulty. Respiration is 18, pulse [place] 81. [place] [address] CONSULTATION Name: BENJIE CANTU Room #: 170-11 ADM IN M.R.#: [id number] Admission: 08/10/21 Attend Phys: Malorie Nicholson Discharge: Date of : 78 Report #: [id number] LABORATORY DATA: White count is 8.8. She is moderately built individual. CT scan as described above. IMPRESSION: Breakthrough seizure because of noncompliance. We will check back tomorrow to see if she is more cooperative, so that we can give some reasonable recommendation. In the present situation, it is not possible to give any reasonable recommendation in this patient. Thank you very much for this referral. By: [phone] Clarence Bennett MD /lety
[~2021-08-09 22:30] MED LIST changes: +ZOFRAN ODT4 MG PO
[2021-08-09 22:31] VITALS: BP 144/88
[2021-08-09 23:11] LABS: ABSOLUTE NEUTROPHILS 5.6 thou/uL (1.4-8.2); BASOPHILS 0.5 % (0.0-2.0); EOSINOPHILS 0.5 % (0.0-3.0); HEMATOCRIT 35.5 % (37.0-47.0); HEMOGLOBIN 11.7 gm/dL (12.0-15.0); LYMPHOCYTES 25.4 % (24.0-44.0); MCH 27.6 pg (26.0-34.0); MCHC 33.1 g/dL (28.0-37.0); MCV 83.3 fL (80.0-100.0); MONOCYTES 9.6 % (1.0-8.0); PLATELET COUNT 271 thou/uL (150-400); RBC 4.26 mil/uL (4.20-5.00); WBC 8.8 thou/uL (4.0-11.0)
[2021-08-09 23:16] LABS: BE(vivo) -0.9 mmol/L (-2 to +3); pH 7.589 (7.360-7.450); sO2 76.8 % (92.0-98.0)
[2021-08-09 23:18] LABS: PCO2 20.3 mmHg (35.0-45.0); PO2 33.4 mmHg (80.0-100.0)
[2021-08-09 23:20] LABS: CALCIUM 9.6 mg/dL (8.5-10.1); CREATININE 0.9 mg/dL (0.6-1.0); POTASSIUM 3.4 mmol/L (3.5-5.1)
[2021-08-09 23:27] LABS: APTT 24.8 Seconds (24.5-32.8); PROTIME 10.9 Seconds (10.5-12.1)
[2021-08-09 23:28] LABS: ALBUMIN 3.8 g/dL (3.4-5.0); TOTAL PROTEIN 7.6 g/dL (6.4-8.2)
[2021-08-10] VITALS (7 sets, daily range): BP systolic 127–164; BP diastolic 84–104
[2021-08-10 01:00] LABS: URINE BLOOD NEGATIVE (Negative); URINE CLARITY CLEAR; URINE COLOR YELLOW; URINE GLUCOSE-RANDOM* NEGATIVE (Negative); URINE KETONES 3+ (Negative); URINE LEUKOCYTES-REFLEX NEGATIVE (Negative); URINE NITRITE-REFLEX NEGATIVE (Negative); URINE PROTEIN (DIPSTICK) 2+ (Negative)
[2021-08-10 01:09] LABS: AMP/METHAMP Negative (Negative); BARBITURATES Negative (Negative); BENZODIAZEPINES Negative (Negative); COCAINE Negative (Negative); METHADONE Negative (Negative); OPIATES Negative (Negative); PCP Negative (Negative)
[2021-08-10 01:30] LABS: ICTOTEST (BILI CONFIRMATORY) Negative (Negative); URINE BILIRUBIN NEGATIVE (Negative)
[2021-08-10 01:43] LABS: CASTS None Seen /LPF (None Seen); MUCUS None Seen strn/LPF (None Seen); SQUAMOUS 4-10 Moderate /LPF (0-3); URINE WBC-REFLEX None Seen /HPF (0-5)
[2021-08-10 01:44] LABS: CRYSTALS None Seen /LPF (None Seen); URINE RBC None Seen /HPF (NONE SEEN)
--- NOTE | 2021-08-10 07:10 | EKG ---
[address] [place] [address] ELECTROCARDIOGRAM REPORT Name: BENJIE CANTU Room #: 170-11 ADM IN M.R.#: [id number] Admission: 08/10/21 Attend Phys: Malorie Nicholson Discharge: Date of : 78 Report #: [id number] [facility] ED Test Date: 2021-08-09 Test Time: 23:33:33 Pat Name: BENJIE CANTU Department: Room: 170 Gender: F Well Site Drilling Engineer: PATRICIA : 1980 Requested By: Danny Eid Order Number: [id number] MD: Angel West Measurements Intervals [place] Rate: 69 P: 36 AL: 136 QRS: 61 QRSD: 86 T: 49 QT: 463 QTc: 496 Interpretive Statements Sinus rhythm Left ventricular hypertrophy Borderline prolonged QT interval Compared to ECG 01/17/2020 22:22:21 Left ventricular hypertrophy now present Electronically Signed On 08-10-2021 7:09:51 MACHINE PACKAGER by Angel West [email or web address] <ELECTRONICALLY SIGNED> By: Angel West MD, [facility] 08/10/21 0709 2333 32 Angel West MD, FACC /EPI
== END 2021-08-11 | disposition home or self-care (01) | DRG 101 ==
LOC: ER 22:30 → EROBS 08-10 01:27 → 2N 08-10 16:43
PROVIDERS: Emergency Medicine; ADMIT Hospitalist; ATTEND Hospitalist
DX: G40.409 Other generalized epilepsy and epileptic syndromes, not intractable, without status epilepticus (principal); Z94.4 Liver transplant status; Z20.822 Contact with and (suspected) exposure to COVID-19; K74.60 Unspecified cirrhosis of liver; Z91.14 Patient's other noncompliance with medication regimen; Z88.8 Allergy status to other drugs, medicaments and biological substances; I10 Essential (primary) hypertension; F31.9 Bipolar disorder, unspecified
CPT/HCPCS: 10081